=== PATIENT | male | born 1980 | race Two or more races ===

== ENCOUNTER 2021-03-16 09:43 | Emergency (ER) | payer MEDICAID ==
[~2021-03-16] VITALS: Ht 177.8 cm; Wt 93.0 kg
[2021-03-16 10:12] VITALS: BP 155/99
--- NOTE | 2021-03-16 10:16 | NUR ---
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
--- NOTE | 2021-03-16 11:20 | NUR ---
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
== END 2021-03-16 12:40 | disposition home or self-care (01) ==
LOC: ED 12:00
DX: B34.9 Viral infection, unspecified (principal); Z20.822 Contact with and (suspected) exposure to COVID-19; J02.9 Acute pharyngitis, unspecified; M79.10 Myalgia, unspecified site; R94.31 Abnormal electrocardiogram [ECG] [EKG]
CPT/HCPCS: 71045; 93005; 99285; U0003; U0005